=== PATIENT | male | born 1980 | race Caucasian/White ===

== ENCOUNTER 2022-03-24 13:36 | Emergency (ER) | payer MEDICAID ==
[~2022-03-24] VITALS: Ht 188 cm; Wt 106.8 kg
[2022-03-24 13:41] VITALS: BP 153/67
[2022-03-24] MEDS ORDERED: normal saline 1000ML IV soln IVB ONE (15:40)
[2022-03-24] MEDS ORDERED: HYDROcodone/acetaminophen 5mg/325mg tablet PO ONE (15:40)
[2022-03-24 16:18] LABS: CLARITY,URINE SLIGHTLY CLOUDY (Clear); COLOR,URINE YELLOW (Yellow); GLUCOSE, URINE NEGATIVE (Neg); KETONES,URINE TRACE mg/dl (Neg); LEUKOCYTE ESTERASE ,URINE NEGATIVE (Neg); NITRITES, URINE NEGATIVE (Neg); OCCULT BLOOD,URINE TRACE-INTACT (Neg); PH,URINE 5.5 (4.8-8.0); PROTEIN,URINE 30 mg/dl (Neg); UROBILINOGEN,URINE 0.2 E.U/dL (0.2-1.0)
[2022-03-24] MEDS ORDERED: CEPH500C81 PO (16:18)
[2022-03-24] MEDS ORDERED: SULF1TAB49 PO ×3 (16:18→16:33)
[2022-03-24 16:19] LABS: UA COLLECTION TYPE NON-SPECIFIED
[2022-03-24 16:24] LABS: BASOPHILS % (AUTO) 0.2 % (0-1); EOSINOPHILS % (AUTO) 0.1 % (0-6); HEMATOCRIT 41.6 % (42.0-52.0); HEMOGLOBIN 14.3 g/dl (14.0-17.9); LYMPHOCYTES # (AUTO) 0.9 X10'3 (1.1-4.8); LYMPHOCYTES % (AUTO) 8.6 % (21-51); MEAN CORPUSCULAR HGB CONC 34.3 g/dL (33.0-36.5); MEAN CORPUSCULAR VOLUME 93.3 FL (78-98); MEAN PLATELET VOLUME 9.8 FL (7.4-10.4); MONOCYTES # (AUTO) 1.3 X10'3 (0-0.9); MONOCYTES % (AUTO) 11.9 % (2-12); NEUTROPHILS # (AUTO) 8.4 X10'3 (1.8-7.7); NEUTROPHILS % (AUTO) 79.2 % (42-75); PLATELET COUNT 132 X10'3 (140-440); RED BLOOD COUNT 4.46 X10'6 (4.70-6.10); WHITE BLOOD COUNT 10.6 X10'3 (4.5-11.0)
[2022-03-24 16:25] LABS: MUCUS STRANDS FEW /LPF (Neg); SQUAMOUS EPITHELIAL CELL,UR MODERATE /LPF (FEW)
[2022-03-24] MEDS ORDERED: sulfamethoxazole/trimethoprim DS (800/160mg) tablet PO ONE (16:25)
[2022-03-24] MEDS ORDERED: cephalexin 500mg capsule PO ONE (16:25)
[2022-03-24 16:26] LABS: BACTERIA,URINE FEW /HPF (Neg); CAL OXALATE CRYSTALS 1+ /HPF (NEGATIVE)
[2022-03-24 16:27] LABS: RBC,URINE 0-2 /HPF (0-2)
[2022-03-24 16:29] LABS: ALANINE AMINOTRANSFERASE 41 U/L (12-78); ALBUMIN 3.1 G/DL (3.4-5.0); ALKALINE PHOSPHATASE 72 IU/L (46-116); ANION GAP 5 (8-16); ASPARTATE AMINO TRANSFERASE 23 U/L (10-37); BILIRUBIN,TOTAL 0.5 MG/DL (0.1-1.0); BLOOD UREA NITROGEN 13 MG/DL (7-18); BUN/CREATININE RATIO 9.9 (5.4-32.0); CALCIUM 8.8 MG/DL (8.5-10.1); CHLORIDE 100 MMOL/L (99-107); CREATININE 1.31 MG/DL (0.60-1.10); GLUCOSE 107 MG/DL (70-104); POTASSIUM 3.7 MMOL/L (3.5-5.1); SODIUM 131 MMOL/L (135-145); TOTAL CARBON DIOXIDE 26.4 MMOL/L (24-32); TOTAL PROTEIN 6.3 G/DL (6.4-8.2); eGFR 60 ML/MIN
[2022-03-24] MEDS ORDERED: HYDR-3965 PO (16:33)
== END 2022-03-24 17:18 | disposition home or self-care (01) ==
LOC: ER 13:37
DX: N48.29 Other inflammatory disorders of penis (principal)
CPT/HCPCS: 36415; 80053; 81001; 85025; 87088; 87502; 87503; 99284; J7030

== ENCOUNTER 2022-04-16 05:40 | Emergency (ER) | payer MEDICAID ==
[~2022-04-16] VITALS: Ht 188 cm; Wt 104.5 kg
[~2022-04-16 05:40] MED LIST: SULF1TAB49 PO
[2022-04-16 05:55] VITALS: BP 130/79
== END 2022-04-16 09:53 | disposition left against medical advice (07) ==
LOC: ER 05:41
DX: M79.601 Pain in right arm (principal); Z53.21 Procedure and treatment not carried out due to patient leaving prior to being seen by health care provider